=== PATIENT | male | born 1990 | race Caucasian/White ===

== ENCOUNTER 2025-01-21 06:46 | Emergency (ER) | payer SELFPAY ==
[2025-01-21] MEDS ORDERED: Acetaminophen 500 MG TAB ONE (07:48)
[2025-01-21] MEDS ORDERED: Ibuprofen 800 MG TAB ONE (07:48)
== END 2025-01-21 07:55 | disposition home or self-care (01) ==
LOC: ERS 06:46
DX: K04.7 Periapical abscess without sinus (principal); K02.9 Dental caries, unspecified
CPT/HCPCS: 99283